=== PATIENT | female | born 1960 | race Caucasian/White ===

== ENCOUNTER 2019-06-21 09:29 | Outpatient (CLI) | payer OTHER, SELFPAY ==
[2019-06-21 10:12] VITALS: BMI 21.7
--- NOTE | 2019-06-21 10:12 | ECG_ITS ---
NAME OF STUDY: EXERCISE SESTAMIBI STRESS TEST INDICATION: Chest Pain, EXERCISE DATA: The patient was exercised by Lino protocol. Baseline heart rate was 49 beats per minute. Baseline blood pressure was 124/84 millimeters of mercury. Target heart rate was 161 beats per minute. Maximum heart rate achieved was 146, which was 90 % of the target heart rate. Maximum blood pressure was 191/95 millimeters of mercury. Total exercise time was 8 minutes 31 second. Maximum METs achieved was 10.2, maximum VO2 was 35.7. The reason for ending the test was excellent effort achieved. The patient complained of during the stress test, which then resolved at the end of the test. ELECTROCARDIOGRAM: BASELINE: Sinus bradycardia , normal axis, no significant ST-T changes at the baseline noted. EXERCISE: At the peak exercise level, No significant ST-T changes suggestive of ischemia noted. RECOVERY: During the recovery period, heart rate dropped appropriately. No significant ST-T changes in the recovery suggestive of ischemia noted. CONCLUSION: 1. Exercise capacity fair. 2. Heart rate response was appropriate. 3. Blood pressure response was hypertensive. 4. Symptoms not suggestive of ischemia. 5. Electrocardiogram portion of the stress test was not suggestive of ischemia. 6. Nuclear scan will be documented separately. Electronically Signed On 06-21-2019 19:58:07 GARNETTER by Ayad Jackson M.D. [email or web address]
--- NOTE | 2019-06-21 10:12 | NMCV_ITS ---
NM grady perf SPECT r/s* [id number] Angelika Vazquez Age: 58 Gender: F : 1960 Exam Date: 06/21/2019 10:52 Ordering Phys: Ayad Jackson MD ([email or web address]) Technologist: ADINA Johnson Exam Location: [facility] Indications: SOB STRESS TEST [facility] IMAGE PROTOCOL Rest/Stress 1 Exercise Day Radiopharmaceutical Dose (mCi) Administration Site Administered by Rest: Tc-99m 10.7 IV ADINA Cordero Stress:Tc-99m 32.3 IV ADINA Cordero Rest: 21-Jun-2019 60 Discovery 630 Stress: 21-Jun-2019 15 Discovery 630 Radiopharmaceutical was injected at 90 % maximum heart rate. Images obtained in supine and prone position. SPECT RESULTS Technical Quality: Excellent Raw Data Analysis: Normal Image Corrections: No attenuation or motion correction applied Summed Stress Score: 0 Summed Rest Score: 0 Summed Difference Score: 0 PERFUSION FINDINGS Medium-size area of persistently decreased tracer uptake noted from basal to distal anterior wall on both stress and rest images suggestive of old myocardial infarction versus artifact. FUNCTIONAL RESULTS (calculated via Gated SPECT) Stress Image LV EF (%): 70 Stress EDV (mL):77 TID: 0.89 Stress ESV (mL):23 Rest Image LV EF (%): 70 FUNCTIONAL FINDINGS: There is normal left ventricular systolic function. IMPRESSIONS There appeared to be mildly reduced tracer uptake in the anterior wall on both rest and stress images however in the absence of wall motion abnormality and other parameters most likely it is an artifact. This study is negative for ischemia. EKG segment will be documented separately. Ayad Jackson MD (Electronically Signed) Final Date: 21 June 2019 19:29 S
--- NOTE | 2019-06-21 10:17 | USCV_ITS ---
Angelika Vazquez Age: 58 Gender: F : 1960 Exam Date: 06/21/2019 10:37 Ordering Phys: Ayad Jackson MD ([email or web address]) Technologist: Alexus Gonzalez [place] [facility] [place]: cardiac murmur BP: / HR: 50 Rhythm: Sinus Technical Quality: Good MEASUREMENTS (Male / Female) Normal Values 2D ECHO LV Diastolic Diameter PLAX 4.5 cm 4.2 - 5.9 / 3.9 - 5.3 cm LV Systolic Diameter PLAX 3.6 cm IVS Diastolic Thickness 0.8 cm 0.6 - 1.0 / 0.6 - 0.9 cm IVS Systolic Thickness 1.1 cm LVPW Diastolic Thickness 0.7 cm 0.6 - 1.0 / 0.6 - 0.9 cm LVPW Systolic Thickness 1.3 cm LVOT Diameter 2.0 cm LV Ejection Fraction 2D Teich 41.2 % LV Ejection Fraction MOD 2C 65.2 % LV Ejection Fraction 2C AL 66.3 % LA Diameter 3.2 cm LA Width 3.0 cm LA Height 3.5 cm RA Width 3.1 cm RA Height 3.9 cm M-MODE LV Diastolic Diameter MM 4.6 cm 4.2 - 5.9 / 3.9 - 5.3 cm LV Systolic Diameter MM 3.0 cm LV Ejection Fraction MM Teich 65.9 % IVS Diastolic Thickness MM 0.6 cm 0.6 - 1.0 / 0.6 - 0.9 cm IVS Systolic Thickness MM 0.8 cm LVPW Diastolic Thickness MM 0.5 cm 0.6 - 1.0 / 0.6 - 0.9 cm LVPW Systolic Thickness MM 1.4 cm Aortic Annulus Diameter 2.2 cm LA Ao Ratio MM 1.5 MV E Point Septal Separation 0.5 cm DOPPLER AV Peak Velocity 149.0 cm/s LVOT Peak Velocity 94.0 cm/s AV Area Cont Eq vti 2.3 cm squared AV Area Cont Eq pk 2.1 cm squared MV Peak Velocity 104.0 cm/s MV Area PHT 3.5 cm squared Mitral E to A Ratio 0.8 MV E' Velocity 7.0 cm/s Mitral E to MV E' Ratio 9.3 Mitral E to LV E' Lateral Ratio 11.3 Mitral E to LV E' Septal Ratio 7.9 TR Peak Velocity 219.0 cm/s TR Peak Gradient 19.1 mmHg Right Atrial Pressure 3.0 mmHg Pulmonary Artery Systolic Pressu 22.2 mmHg PV Peak Velocity 82.0 cm/s RV Acceleration Time 0.1 s FINDINGS Left Ventricle Normal left ventricular cavity size. Normal left ventricular systolic function. No regional wall motion abnormalities. Left ventricular ejection fraction is estimated at 65 %. Grade I/IV diastolic dysfunction (abnormal relaxation filling pattern), normal to mildly elevated filling pressures. Right Ventricle The right ventricle is normal in size and function. Right Atrium The right atrium is normal in size. Left Atrium The left atrium is normal in size. Mitral Valve Structurally normal mitral valve without significant stenosis or prolapse. There is no mitral regurgitation. Aortic Valve Mild aortic valve calcification. No aortic valve stenosis. Mild aortic valve regurgitation. Tricuspid Valve Moderate tricuspid valve regurgitation. Pulmonic Valve Structurally normal pulmonic valve without significant stenosis. There is no pulmonic regurgitation. Pericardium Normal pericardium without effusion. Aorta Normal ascending aorta dimension. CONCLUSIONS 1-Normal left ventricular cavity size. Normal left ventricular systolic function. No regional wall motion abnormalities. Left ventricular ejection fraction is estimated at 65 %. Grade I/IV diastolic dysfunction (abnormal relaxation filling pattern), normal to mildly elevated filling pressures. 2-Structurally normal mitral valve without significant stenosis or prolapse. There is no mitral regurgitation. 3-Mild aortic valve calcification. No aortic valve stenosis. Mild aortic valve regurgitation. 4-Moderate tricuspid valve regurgitation. 5-There is no pericardial effusion. 6-Pulmonary artery systolic pressure is within normal limits. 7-Right atrial pressure is around 5 mm of mercury. 8-There are no prior echocardiogram studies to compare. Ayad Jackson MD (Electronically Signed) Final Date: 21 June 2019 19:34 S
[2019-06-21 12:11] VITALS: BP 135/85; PULSE 79
== END 2019-06-21 09:30 | disposition home or self-care (01) ==
PROVIDERS: Family Provider Nurse Practitioner; PCP Nurse Practitioner; Visit Provider Internal Medicine Cardiovascular Disease
DX: I08.2 Rheumatic disorders of both aortic and tricuspid valves (principal); R01.1 Cardiac murmur, unspecified; R07.89 Other chest pain; R06.02 Shortness of breath
CPT/HCPCS: 78452; 93306; A9500

== ENCOUNTER 2019-06-21 12:00 | Outpatient (CLI) | payer OTHER, SELFPAY | END 2019-06-21 12:20 | disposition home or self-care (01) | LOC: CDL 12-07 12:07 | PROVIDERS: PCP Nurse Practitioner; Visit Provider Internal Medicine Cardiovascular Disease | DX: R07.89 Other chest pain (principal); R06.02 Shortness of breath; R01.1 Cardiac murmur, unspecified | CPT/HCPCS: 93017 ==